=== PATIENT | male | born 1950 | race Two or more races ===

== ENCOUNTER 2025-09-06 21:15 | Emergency (ER) | payer OTHER ==
[~2025-09-06] VITALS: Ht 165.1 cm; Wt 80.9 kg
--- NOTE | 2025-09-06 21:42 | ED.PDOC ---
General HPI Comments HPI: 74-year-old male with past medical history of hypertension and diabetes presents to the emergency department with chief complaint of urinary retention. Patient states that he has been having scant urine production with associated suprapubic abdominal pain and lower back pain x5 days. Patient further reports to have been unable to have a bowel movement in x5 days. Patient denies fever, chills, sweats, hematuria, or penile discharge. No other symptoms or modifying factors are present at this time. PMHx: Diabetes, hypertension SHx: Denies any Allergies:NKA HPI: Poor Historian. REVIEW OF SYSTEMS: CONSTITUTIONAL: Denies acute: fever, diaphoresis, chills, generalized weakness. HEAD: Denies acute: headache, photophobia Eyes: Denies acute: Double vision, vision loss, eye pain, eye discharge. EARS: Denies acute: tinnitus, hearing loss, ear discharge, ear pain, THROAT: Denies acute: sore throat, swelling, difficulty swallowing , pain with swallowing, change in voice. NECK: Denies acute: neck pain, neck swelling, stiff neck. HEART: Denies acute : chest pain, palpitations, LUNGS: Denies acute: SOB, wheezing, cough, hemoptysis ABDOMEN: Denies acute: Nausea, Vomiting, diarrhea, melena , hematemesis, hematochezia SKIN: Denies acute: rash, redness, lesions, itchiness. EXTREMITIES: Denies acute: calf pain, numbness, tingling, weakness, denies pain in extremity. Neuro: Denies acute: focal neurological deficit, motor or sensory focal neurological deficit, tremors, seizure like activity, confusion, dizziness, change in mental status, loss of bowel or bladder function, cauda equina like symptoms. : Denies acute: dysuria, hematuria, flank pain, PSYCH: Denies acute: hallucination, suicidal ideation, homicidal ideation. PHYSICAL EXAM: General: ---moderate-----acute distress, awake and alert. Head: normocephalic, atraumatic. No raccoon's eyes, no munoz sign. Neck: supple, trachea is midline, no swelling. Throat: Normal phonation. Eyes:, no erythema, no purulent discharge, no proptosis, no icterus. Heart: regular rate, regular rhythm, no significant murmur appreciated. Lungs: no apparent respiratory distress, Able to speak in full sentences. No wheezing, no rhonchi, no crackles. No stridors Clear to auscultation bilaterally. Abdomen: mild suprapubic tender to palpation, non distended, soft, no guarding, no rebound, + bowel sounds. Neuro: Awake, Alert, oriented to name, self, situation, follows commands GCS=15. Speech is normal. Skin: no petechia, no purpura, no cyanosis, non-pale, not jaundice. Lower extremities: --no - Pitting edema no deformity, no focal swelling, no calf TTP. Makes eye contact. moves all four extremities. Face: no apparent facial droop. Ambulating in the ED independently. ED COURSE: DISCLAIMER: This medical document was created using an electronic medical record system with voice recognition software and computerized dictation system. Although this document has been carefully reviewed, there might still be some phonetic and typographical errors. Occasional wrong-word or "sound-alike" substitutions may have occurred due to the inherent limitations of voice recognition software. These areas are purely typographical due to imperfections of the software programs and do not reflect any compromise in the patient's medical care. Please read the chart carefully and recognize, using context, where these substitutions have occurred. Chief Complaint: Urinary Time Seen by MD: 21:40 Reviewed notes: Nurses Notes, Medications, Allergies Information Source: Patient Mode of Arrival: Ambulatory Prehospital treatment: None Symptoms: Inability to void History of: None Penile discharge: None Modifying factors: None associated signs and symptoms: Abdominal Pain, Back Pain, Inability to Void Was a procedure done? Was a procedure done?: No Differential Diagnosis Kidney stone (Female): N/A Kidney stone (Male): Pyelonephritis, Strain, Urinary obstruction, Urolithiasis, Urinary tract infection Urinary Problem (Female): N/A X-Ray, Labs, Meds, VS Vital Signs Date Time Temp Pulse Resp B/P (MAP) Pulse Ox O2 Delivery O2 Flow Rate FiO2 09/07/25 00:50 Room Air* 0 21 09/07/25 00:30 98.0 74 20 153/83 (106) 99 98.0 09/06/25 21:25 98.2 82 20 180/94 98 98.2 Lab Test 09/06/25 21:56 09/06/25 21:42 Range/Units Urine Color Light-yellow Yellow Urine Clarity Clear Clear Urine pH 5.5 5.0-9.0 Urine Specific [place] 1.009 1.001-1.035 Urine Protein 1+ H Negative Urine Ketones Negative Negative Urine Blood Trace H Negative /uL Urine Nitrite Negative Negative Urine Bilirubin Negative Negative Urine Urobilinogen Normal Negative mg/dL Urine Leukocyte Esterase Negative Negative /uL Urine RBC 1 0 - 3 /hpf Urine Microscopic WBC 1 0-3 /HPF Urine Squamous Epithelial Cells None seen <5 /hpf Urine Bacteria None seen None Seen /hpf Urine Hyaline Casts Few 0 - 2 /lpf Urine Glucose 1+ H Normal mg/dL White Blood Count 8.7 4.4-10.8 10^3/uL Red Blood Count 4.05 L 4.5-5.90 10^6/uL Hemoglobin 11.5 L 13.5-17.5 g/dL Hematocrit 33.7 L 41.0-53.0 % Mean Corpuscular Volume 83.2 80.0-100.0 fL Mean Corpuscular Hemoglobin 28.5 28.0-32.0 pg Mean Corpuscular Hemoglobin Concent 34.2 32.0-36.0 g/dL Red Cell Distribution Width 13.9 11.8-14.3 % Platelet Count 284 140-450 10^3/uL Mean Platelet Volume 7.8 6.9-10.8 fL Neutrophils (%) (Auto) 63.4 37.0-80.0 % Lymphocytes (%) (Auto) 20.1 10.0-50.0 % Monocytes (%) (Auto) 14.6 H 0.0-12.0 % Eosinophils (%) (Auto) 1.3 0.0-7.0 % Basophils (%) (Auto) 0.6 0.0-2.0 % Neutrophils # (Auto) 5.5 1.6-8.6 10 ^3/uL Lymphocytes # (Auto) 1.8 0.4-5.4 10 ^3/uL Monocytes # (Auto) 1.3 0-1.3 10 ^3/uL Eosinophils # (Auto) 0.1 0-0.8 10 ^3/uL Basophils # (Auto) 0.1 0-0.2 10 ^3/uL Nucleated Red Blood Cells 0.0 % Sodium Level 125 L 136-145 mmol/L Potassium Level 4.1 3.5-5.1 mmol/L Chloride Level 94 L 98-107 mmol/L Carbon Dioxide Level 22 20-31 mmol/L Anion Gap 9 5-15 Blood Urea Nitrogen 20 9-23 mg/dL Creatinine 1.09 0.700-1.30 mg/dL Glomerular Filtration Rate Calc 71 >90 mL/min BUN/Creatinine Ratio 18.3 10.0-20.0 Serum Glucose 236 H 74-106 mg/dL Lactic Acid Level 1.1 0.4-2.0 mmol/L Calcium Level 8.5 L 8.7-10.4 mg/dL Total Bilirubin 0.4 0.2-1.0 mg/dL Aspartate Amino Transferase (AST) 22 13-40 U/L Alanine Aminotransferase (ALT) 30 7-40 U/L Alkaline Phosphatase 97 46-116 U/L Total Protein 6.3 5.7-8.2 g/dL Albumin 3.8 3.2-4.8 g/dL Time of 1ST Reevaluation: 22:10 Reevaluation 1ST: Unchanged Time of 2ND Reevaluation: 00:58 (The case was discussed with the admitting team (HPI, physical exam, labs and diagnostic tests that were available at the time of disposition, ED course, treatment plan) on the phone. They agreed to evaluate the patient assume care of this patient from this point forward. [employer] Ed gar. 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 ) Insert Saavedra Catheter QSHIFT (09/06/25 21:57) Lidocaine 2% Topical Jelly (Lidocaine Hc (09/06/25 22:00) Ceftriaxone 1gm/50ml (Rocephin) (09/07/25 00:00) Sodium Chloride 0.9% (09/07/25 00:00) Vital Signs Date Time Temp Pulse Resp B/P (MAP) Pulse Ox O2 Delivery O2 Flow Rate FiO2 09/07/25 00:50 Room Air* 0 21 09/07/25 00:30 98.0 74 20 153/83 (106) 99 98.0 09/06/25 21:25 98.2 82 20 180/94 98 98.2 Laboratory Tests Test 09/06/25 21:42 Lactic Acid Level 1.1 mmol/L (0.4-2.0) White Blood Count 8.7 10^3/uL (4.4-10.8) Departure 1 Departure Time of Disposition: 23:52 Impression: Primary Impression: Acute urinary retention Additional Impression: Hyponatremia Disposition: ADMITTED INPATIENT Admit to: [facility] Condition: Guarded Discharged With: Self Critical Care Note Critical Care Time?: No I personally scribed for TIFFANY HERNANDEZ DO ([email or web address]) on 09/06/25 at 21:42. Electronically submitted by Ángela Jones [email or web address]). I personally scribed for TIFFANY HERNANDEZ DO ([email or web address]) on 09/06/25 at 21:53. Electronically submitted by Ángela Jones [email or web address]). TIFFANY HERNANDEZ DO Sep 06, 2025 21:42
[2025-09-06 22:08] LABS: Hematocrit 33.7 % (41.0-53.0); Hemoglobin 11.5 g/dL (13.5-17.5); Mean Corpuscular Hemoglobin 28.5 pg (28.0-32.0); Mean Corpuscular Volume 83.2 fL (80.0-100.0); Nucleated Red Blood Cells % 0.0 %
--- NOTE | 2025-09-06 22:08 | DVH ---
Exam: CT CT AB PEL WO CON-NO ORAL OR IV History: urinary symptoms Comparison Study: None TECHNIQUE: Multidetector CT of the abdomen and pelvis was performed from lung bases to pubic symphysis. Imaging was performed without IV contrast. Axial, coronal, and sagittal multiplanar reformats were obtained from the axial data set by the technologist. RADIATION DOSE: CTDI vol 16.2 mGy. DLP 1048.1 mGy.cm Findings: Limited evaluation of the solid organs in the absence of IV contrast. Lungs: Basilar atelectasis/scarring. Liver: Unremarkable. Spleen: Unremarkable. Pancreas: Unremarkable. Gallbladder: Unremarkable. Adrenals: Unremarkable Kidneys: Nonspecific bilateral perinephric stranding. No obstructing calculus. Pelvic Viscera: Prostatomegaly. Distended appearance of the urinary bladder. Mild wall thickening about the urinary bladder. Vasculature: Atherosclerotic aortoiliac calcification. Retroperitoneum: Unremarkable. Bowel: Colonic diverticulosis without CT evidence of diverticulitis. No bowel obstruction. The appendix is normal. Musculoskeletal: Unremarkable. Soft tissues: Unremarkable Impression: 1. Nonspecific bilateral perinephric stranding. Distended urinary bladder with mild wall thickening, clinical correlation for cystitis is suggested. Nonspecific bilateral perinephric stranding, infectious/inflammatory process cannot be excluded. An element of bladder outlet obstruction cannot be excluded. 2. Additional findings as detailed.
[2025-09-06 22:15] LABS: Urine Protein, UAD 1+ (Negative)
[2025-09-06 22:21] LABS: Alanine Aminotransferase 30 U/L (7-40); Albumin 3.8 g/dL (3.2-4.8); Alkaline Phosphatase 97 U/L (46-116); Anion Gap 9 (5-15); BUN/Creatinine Ratio 18.3 (10.0-20.0); Bilirubin, Total 0.4 mg/dL (0.2-1.0); Blood Urea Nitrogen 20 mg/dL (9-23); Carbon Dioxide 22 mmol/L (20-31); Potassium 4.1 mmol/L (3.5-5.1); Total Protein 6.3 g/dL (5.7-8.2)
[2025-09-06 22:22] LABS: Calcium 8.5 mg/dL (8.7-10.4); Chloride 94 mmol/L (98-107); Glucose 236 mg/dL (74-106); Sodium 125 mmol/L (136-145)
[2025-09-07 01:20] VITALS: PULSE 74; O2SAT 98
--- NOTE | 2025-09-07 01:20 | DVHINCON2 ---
LAQUITA AYALA PEDIATRIC DENTIST 09/07/25 0120: Date of service: Sep 07, [address] [place] Reason for Consultation Medical management History of Present Illness 74-year-old male with past medical history of DM, hypertension, hyperlipidemia presents with complaints of lower abdominal/pelvic pain x3 days. Patient endorses that he has been experiencing urinary retention. As he is only able to dribble when he urinates. He has also complained of constipation x5 days. Patient was recently seen by his PCP and prescribed tamsulosin, ciprofloxacin, and Colace on September 04, 2025. Patient's biggest concern right now is the inability to void and have a bowel movement. Patient denies fevers, chills, shortness of breath, chest pain, palpitations, nausea, vomiting, dysuria. Past Medical History Hypertension, HLD, dm Allergies: Coded Allergies: NO KNOWN ALLERGIES (Unverified , 09/07/25) Home Meds Active Scripts Psyllium (Metamucil) 1.7 Gm Waf, 1.7 GM PO BS for 10 Days, #10 MISC Prov:LAQUITA AYALA NP 09/07/25 Lactulose (Lactulose) 10 Gm/15 Ml Maryam, 10 GM PO BIDP PRN for 6 Days, #120 ML Prov:LAQUITA AYALA NP 09/07/25 Review of Systems 10 systems reviewed and negative except as per HPI Vital Signs Vital Signs Date Time Temp Pulse Resp B/P (MAP) Pulse Ox O2 Delivery O2 Flow Rate FiO2 09/07/25 00:50 Room Air* 0 21 09/07/25 00:30 98.0 74 20 153/83 (106) 99 98.0 Physical Exam GENERAL: Patient appearing stated age, in no acute distress. HEENT: Pupils equal and reactive to light and accommodation. Extraocular muscles intact. Mucous membranes moist. Conjunctivae pink. Anicteric sclerae. LUNGS: Bilateral air entry. No wheezes, rhonchi or rales. HEART: Regular rate and rhythm. Normal S1 and S2. ABDOMEN: BS normoactive, soft, nontender, and nondistended. No CVA tenderness. Lower abdominal discomfort on palpation EXTREMITIES: No clubbing, cyanosis, edema. No calf tenderness. Pedal pulses 2+. NEUROLOGICAL: The patient is alert and oriented times 3. CN II-XII intact. No focal deficits on gross sensory or motor examination. Labs/Diagnostic Data Labs Test 09/06/25 21:56 09/06/25 21:42 Range/Units Urine Color Light-yellow Yellow Urine Clarity Clear Clear Urine pH 5.5 5.0-9.0 Urine Specific [place]bin 1.009 1.001-1.035 Urine Protein 1+ H Negative Urine Ketones Negative Negative Urine Blood Trace H Negative /uL Urine Nitrite Negative Negative Urine Bilirubin Negative Negative Urine Urobilinogen Normal Negative mg/dL Urine Leukocyte Esterase Negative Negative /uL Urine RBC 1 0 - 3 /hpf Urine Microscopic WBC 1 0-3 /HPF Urine Squamous Epithelial Cells None seen <5 /hpf Urine Bacteria None seen None Seen /hpf Urine Hyaline Casts Few 0 - 2 /lpf Urine Glucose 1+ H Normal mg/dL White Blood Count 8.7 4.4-10.8 10^3/uL Red Blood Count 4.05 L 4.5-5.90 10^6/uL Hemoglobin 11.5 L 13.5-17.5 g/dL Hematocrit 33.7 L 41.0-53.0 % Mean Corpuscular Volume 83.2 80.0-100.0 fL Mean Corpuscular Hemoglobin 28.5 28.0-32.0 pg Mean Corpuscular Hemoglobin Concent 34.2 32.0-36.0 g/dL Red Cell Distribution Width 13.9 11.8-14.3 % Platelet Count 284 140-450 10^3/uL Mean Platelet Volume 7.8 6.9-10.8 fL Neutrophils (%) (Auto) 63.4 37.0-80.0 % Lymphocytes (%) (Auto) 20.1 10.0-50.0 % Monocytes (%) (Auto) 14.6 H 0.0-12.0 % Eosinophils (%) (Auto) 1.3 0.0-7.0 % Basophils (%) (Auto) 0.6 0.0-2.0 % Neutrophils # (Auto) 5.5 1.6-8.6 10 ^3/uL Lymphocytes # (Auto) 1.8 0.4-5.4 10 ^3/uL Monocytes # (Auto) 1.3 0-1.3 10 ^3/uL Eosinophils # (Auto) 0.1 0-0.8 10 ^3/uL Basophils # (Auto) 0.1 0-0.2 10 ^3/uL Nucleated Red Blood Cells 0.0 % Sodium Level 125 L 136-145 mmol/L Potassium Level 4.1 3.5-5.1 mmol/L Chloride Level 94 L 98-107 mmol/L Carbon Dioxide Level 22 20-31 mmol/L Anion Gap 9 5-15 Blood Urea Nitrogen 20 9-23 mg/dL Creatinine 1.09 0.700-1.30 mg/dL Glomerular Filtration Rate Calc 71 >90 mL/min BUN/Creatinine Ratio 18.3 10.0-20.0 Serum Glucose 236 H 74-106 mg/dL Lactic Acid Level 1.1 0.4-2.0 mmol/L Calcium Level 8.5 L 8.7-10.4 mg/dL Total Bilirubin 0.4 0.2-1.0 mg/dL Aspartate Amino Transferase (AST) 22 13-40 U/L Alanine Aminotransferase (ALT) 30 7-40 U/L Alkaline Phosphatase 97 46-116 U/L Total Protein 6.3 5.7-8.2 g/dL Albumin 3.8 3.2-4.8 g/dL Assessment - Urinary retention secondary to bladder outlet obstruction enlarged prostate - Hyponatremia Patient was seen and evaluated ER bed 9. Patient's chart was reviewed in its entirety including lab work, imaging, physical assessment. W8.7, H&H 11.5/33.7, PLT 284. Na 125, K4.1, BUN 20, creatinine 1.09, LA 1.1. UA negative. CT of the abdomen and pelvis was interpreted per the radiologist and reviewed for myself. Impression reads nonspecific bilateral perinephric stranding distended urinary bladder with mild wall thickening, clinical correlation for cystitis is suggested. Nonspecific bilateral perinephric stranding, infectious/inflammatory process can not be excluded. An element of bladder outlet obstruction can not be excluded. Prostatomegaly. On evaluation the patient is hemodynamically stable as such his main complaint is pelvic pain secondary to urinary retention ongoing constipation. Patient is also able to ambulate independently with steady gait. It is also noteworthy that the patient has recently been started on ciprofloxacin, Flomax, and Colace by his PCP on September 04, 2025. Given that the CBC is unremarkable. UA is negative, BUN and creatinine are both within normal range. Patient's current treatment is having a positive effect. An indw elling Saavedra catheter was ordered and placed for the urinary retention. Patient was also treated with 1 L NS and IV Rocephin per the emergency department. I also treated him with lactulose for constipation Plan/Recommendation At this time the patient is being discharged home in stable condition with an indwelling Saavedra catheter in place. The patient and his were both instructed that patient is to complete the antibiotics as ordered by his PCP. Patient was also educated on proper indwelling Saavedra catheter care to prevent additional UTIs. [facility] [place] case management has been consulted to establish home safety follow up, urology appointment on outpatient basis, and repeat BMP at [facility] in 4 days for reassessment of hyponatremia at which time the patient can be started on appropriate treatment if needed. We will also plan for repeat UA at this time The patient and his were both provided with strict ER precautions including but not limited to fevers, chills, dizziness, syncope, shortness of breath, chest pain, palpitations, abdominal pain, abdominal distention, continued constipation. If any of these occur return to the nearest emergency department for further evaluation and treatment. Plan discussed with: Patient, Spouse NARINDER MONTES MD 09/07/25 1345: Allergies: Coded Allergies: NO KNOWN ALLERGIES (Unverified , 09/07/25) Home Meds Active Scripts Psyllium (Metamucil) 1.7 Gm Waf, 1.7 GM PO BS for 10 Days, #10 MISC Prov:LAQUITA AYALA NP 09/07/25 Lactulose (Lactulose) 10 Gm/15 Ml Maryam, 10 GM PO BIDP PRN for 6 Days, #120 ML Prov:LAQUITA AYALA NP 09/07/25 Additional Comments Additional Comments Additional Comments Patient's chart is reviewed and discussed with the nurse practitioner. Patient is seen evaluated and discharged from ER by PEDIATRIC DENTIST. I agree with his evaluation, documentation, assessment and care plan as outlined. LAQUITA AYALA NP Sep 07, 2025 01:20 NARINDER MONTES MD Sep 07, 2025 13:45
[2025-09-07 01:26] VITALS: TEMP 98.1
[2025-09-07] MEDS: SODIUM CHLORIDE 0.9% 1,000 ML IV ONE (01:52)
[2025-09-07] MEDS: LIDOCAINE 2% TOPICAL JELLY 5 ML URJT TOP ONE (01:53)
[2025-09-07] MEDS: LACTULOSE 20Gm/30ML SOLN PO ONE (01:53)
[2025-09-07] MEDS ORDERED: LACT10SO3 PO (02:38)
[2025-09-07] MEDS ORDERED: PSYL1.7W2 PO (02:39)
[2025-09-07 03:00] VITALS: BP 148/87; PULSE 67; RESP 12; O2SAT 95
== END 2025-09-07 03:13 | disposition home or self-care (01) ==
LOC: ER 21:15
DX: R33.9 Retention of urine, unspecified (principal); E87.1 Hypo-osmolality and hyponatremia; I10 Essential (primary) hypertension; E11.9 Type 2 diabetes mellitus without complications; E78.5 Hyperlipidemia, unspecified
CPT/HCPCS: 36415; 51702; 74176; 80053; 81001; 83605; 85025; 96365; 99285; A4315; J0696; J7030

== ENCOUNTER 2025-09-24 15:32 | Emergency (ER) | payer OTHER ==
[~2025-09-24] VITALS: Ht 165.1 cm; Wt 76.2 kg
[~2025-09-24 15:32] MED LIST: LACT10SO3 PO; PSYL1.7W2 PO
--- NOTE | 2025-09-24 16:31 | ED.PDOC ---
GI ASSESSMENT HPI Comments 74-year-old male with a PMH of noninsulin dependent diabetes type 2, hypertension, hyperlipidemia presents with the complaints of constipation. Patient reports that it has been 3 days since he has been taking milk of magnesia, but it has not helped relief his constipation, and he feels bloated as he produces very little stool despite the medication. He complains that when he strains, the pain in his right leg, starting from his back increases. Patient was seen at this facility 2 weeks ago for acute urinary retention and CT Abdomen and pelvis showed 'urinary bladder thickening, bladder outlet obstruction can not be ruled out'. He was sent home with a Saavedra's catheter in place and antibiotics from this facility and reports that he went to [place] last week for similar complaints and Saavedra's was changed there. Patient also reports that he noticed blood in the urinary bag yesterday and on inquiry, states that he is having dysuria. He denies any nausea, vomiting, fever, chills, abdominal pain, chest pain or shortness of breath.On initial assessment, patient is in moderate distress, suprapubic tenderness is present on palpation and he has hypertensive urgency- 192/90 mmHg. Patient states he took his daily medication today morning. Chief Complaint: Constipation Time Seen by MD: 16:45 Allergies: Coded Allergies: NO KNOWN ALLERGIES (Unverified , 09/07/25) Home Meds Active Scripts Psyllium (Metamucil) 1.7 Gm Waf, 1.7 GM PO BS for 10 Days, #10 MISC Prov:LAQUITA AYALA SOAPSTONER 09/07/25 Lactulose (Lactulose) 10 Gm/15 Ml Maryam, 10 GM PO BIDP PRN for 6 Days, #120 ML Prov:LAQUITA AYALA SOAPSTONER 09/07/25 Information Source: Patient, Spouse Mode of Arrival: Ambulatory Brought in by: Timing: Days Duration: Since onset Prehospital treatment: None Quality: Other (Bloated feeling) Vomitus: None Stool: Other (Constipated, very little stool produced despite milk of magnesia) Severity: Moderate Recent: Laxative Use Recent Hx of: Other (Acute urinary retention) Pain Location: Suprapubic Modifying Factors: Nothing Associated sign and symptoms: Constipation Past Medical History PAST MEDICAL HISTORY: DM, High Lipids, HTN Past Medical History (Other): Acute urinary retention, acute cystitis Surgical History: Denies all surgeries Family History Family History: Reviewed,noncontributory to illness Social History Smoker: Non-Smoker Alcohol: Denies ETOH Use Drugs: Denies Drug Use Constitutional: denies: chills, diaphoresis, fatigue, fever, malaise, sweats, weakness, others EENTM: denies: blurred vision, double vision, ear bleeding, ear discharge, ear drainage, ear pain, ear ringing, eye pain, eye redness, hearing loss, mouth pain, mouth swelling, nasal discharge, nose bleeding, nose congestion, nose pain, photophobia, tearing, throat pain, throat swelling, voice changes, others Respiratory: denies: cough, hemoptysis, orthopnea, SOB at rest, shortness of breath, SOB with excertion, stridor, wheezing, others Cardiovascular: denies: chest pain, dizzy spells, diaphoresis, Dyspnea on exertion, edema, irregular heart beat, left arm pain, lightheadedness, palpitations, PND, syncope, others Gastrointestinal: reports: constipated, others (Bloated feeling); denies: abdomen distended, abdominal pain, blood streaked bowels, diarrhea, dysphagia, difficulty swallowing, hematemesis, melena, nausea, poor appetite, poor fluid intake, rectal bleeding, rectal pain, vomiting Genitourinary: reports: dysuria, hematuria; denies: burning, flank pain, frequency, incontinence, penile discharge, penile sore, pain, testicle pain, testicle swelling, urgency, others Neurological: reports: others (Right lower extremity numbness, chronic); denies: dizziness, fainting, headache, left sided numbness, left sided weakness, numbness, paresthesia, pre-existing deficit, right sided numbness, right sided weakness, seizure, speech problems, tingling, tremors, weakness Musculoskeletal: denies: back pain, gout, joint pain, joint swelling, muscle pain, muscle stiffness, neck pain, others Integumetry: denies: bruises, change in color, change in hair/nails, dryness, laceration, lesions, lumps, rash, wounds, others Allergic/Immunocompromised: denies: Difficulty Healing, Frequent Infections, Hives, Itching, others Hematologic/Lymphatic: denies: anemia, blood clots, easy bleeding, easy bruising, swollen glands, others Endocrine: denies: excessive hunger, excessive sweating, excessive thirst, excessive urination, flushing, intolerance to cold, intolerance to heat, unexplained weight gain, unexplained weight loss, others Psychiatric: denies: anxiety, bipolar disorder, depression, hopeless, panic disorder, schizophrenia, sleepless, suicidal, others Physical Exam General Appearance: Moderate Distress HEENT: Other (No pallor, no icterus, maintains eye contact) Neck: Full Range of Motion, Non-Tender, Normal, Normal Inspection Respiratory: No Accessory Muscle Use, No Respiratory Distress, Normal Breath Sounds Cardiovascular: No Edema, No JVD, No Murmur, Regular Rate/Rhythm Breast Exam: Deferred Gastrointestinal: Normal Bowel Sounds, Suprapubic, Tenderness, Other (No guarding, no rebound tenderness, no masses palpated) Genitalia: Deferred Pelvic: Deferred Rectal: Deferred Extremities: No calf tenderness, Normal range of motion, No pedal edema Neurologic: None Cerebellar Function: Normal Reflexes: Normal Skin: Normal Color Lymphatic: Other (No cervical adenopathy palpated) Was a procedure done? Was a procedure done?: No GI differential Dx Differential Diagnosis: Constipation, Urinary Obstruction, UTI X-Ray, Labs, Meds, VS Vital Signs Date Time Temp Pulse Resp B/P (MAP) Pulse Ox O2 Delivery O2 Flow Rate FiO2 09/24/25 15:35 98.0 90 18 192/90 98 98.0 Lab Test 09/24/25 18:47 09/24/25 16:50 Range/Units Urine Color Pending Urine Clarity Pending Urine pH Pending Urine Specific [place] Pending Urine Protein Pending Urine Ketones Pending Urine Blood Pending Urine Nitrite Pending Urine Bilirubin Pending Urine Urobilinogen Pending Urine Leukocyte Esterase Pending Urine RBC Pending Urine Microscopic WBC Pending Urine Squamous Epithelial Cells Pending Urine Bacteria Pending Urine Glucose Pending White Blood Count 7.3 4.4-10.8 10^3/uL Red Blood Count 4.06 L 4.5-5.90 10^6/uL Hemoglobin 11.7 L 13.5-17.5 g/dL Hematocrit 34.5 L 41.0-53.0 % Mean Corpuscular Volume 84.9 80.0-100.0 fL Mean Corpuscular Hemoglobin 28.8 28.0-32.0 pg Mean Corpuscular Hemoglobin Concent 33.9 32.0-36.0 g/dL Red Cell Distribution Width 13.6 11.8-14.3 % Platelet Count 345 140-450 10^3/uL Mean Platelet Volume 7.3 6.9-10.8 fL Neutrophils (%) (Auto) 65.1 37.0-80.0 % Lymphocytes (%) (Auto) 22.8 10.0-50.0 % Monocytes (%) (Auto) 8.7 0.0-12.0 % Eosinophils (%) (Auto) 2.5 0.0-7.0 % Basophils (%) (Auto) 0.9 0.0-2.0 % Neutrophils # (Auto) 4.8 1.6-8.6 10 ^3/uL Lymphocytes # (Auto) 1.7 0.4-5.4 10 ^3/uL Monocytes # (Auto) 0.6 0-1.3 10 ^3/uL Eosinophils # (Auto) 0.2 0-0.8 10 ^3/uL Basophils # (Auto) 0.1 0-0.2 10 ^3/uL Nucleated Red Blood Cells 0.0 % Sodium Level 134 L 136-145 mmol/L Potassium Level 4.3 3.5-5.1 mmol/L Chloride Level 98 98-107 mmol/L Carbon Dioxide Level 26 20-31 mmol/L Anion Gap 10 5-15 Blood Urea Nitrogen 22 9-23 mg/dL Creatinine 0.93 0.700-1.30 mg/dL Glomerular Filtration Rate Calc 86 >90 mL/min BUN/Creatinine Ratio 23.7 H 10.0-20.0 Serum Glucose 193 H 74-106 mg/dL Calcium Level 9.4 8.7-10.4 mg/dL Images Reviewed?: Images reviewed and evaluated by me Time of 1ST Reevaluation: 18:15 Reevaluation 1ST: Unchanged Time of 2ND Reevaluation: 19:25 Reevaluation 2ND: Improved Patient Education/Counseling: Diagnosis, Treatment Family Education/Counseling: Diagnosis, Treatment Comments Patient came with a chief complaint of constipation for the past 3 days and dysuria. A CT abdomen and pelvis without contrast showed lzpq-[id number] stool burden and okot-ya-crxxtwch prostatomegaly with bladder circumferentially thickened. Patient was given lactulose 30 mL for constipation. For hypertensive urgency patient was given clonidine 0.1 mg stat. CBC and BMP were unremarkable. UA shows UTI with leukocyte esterase +1. For patient's back pain radiating to the leg [place] 10/325 mg was given. Patient's blood glucose levels the slightly high and patient has been counseled regarding dietary modification, exercise and to follow up with primary care physician as well as urologist. Patient is stable and can be discharged. He has been prescribed Bactrim for 7 days to be taken twice a day. Patient and spouse have communicated understanding. SEPSIS Sepsis Screen Date sepsis recognized/suspect: Sep 24, 2025 Time Sepsis recognized/suspect: 1534 Recent Procedure: No On Antibiotic Therapy: No Respiratory Rate >20: No Heart Rate >90: No Temp<36 C (96.8 F) or >38.3 C: No SBP <90 or MAP <65 mmHG: No New Acute Mental Status Change: No Is the patient on CPAP, BIPAP,: No Physician Orders Urinalysis (09/24/25 16:19) Ct Ab Pel Wo Con-No Oral Or Iv (09/24/25 16:19) Vital Signs Date Time Temp Pulse Resp B/P (MAP) Pulse Ox O2 Delivery O2 Flow Rate FiO2 09/24/25 15:35 98.0 90 18 192/90 98 98.0 Laboratory Tests Test 09/24/25 16:50 White Blood Count 7.3 10^3/uL (4.4-10.8) Departure 1 Departure Time of Disposition: 19:30 Impression: Primary Impression: Constipation, slow transit Additional Impression: Urinary tract infection Disposition: HOME / SELF CARE / HOMELESS Condition: Stable Discharged With: Self Critical Care Note Critical Care Time?: No Stability Stability form required: No Heart Score Heart Score: Heart Score Response (Comments) Value History N/A 0 EKG N/A 0 Age N/A 0 Risk Factors N/A 0 Troponin N/A 0 Total 0 LOC WILKS RESIDENT Sep 24, 2025 16:31
--- NOTE | 2025-09-24 16:55 | DVH ---
EXAM: CT CT AB PEL WO CON-NO ORAL OR IV INDICATION: abdominal pain and consipation TECHNIQUE: Volumetric multidetector CT images of the abdomen and pelvis were obtained without contrast. All CT scans at this facility use dose modulation, iterative reconstruction, and/or weight based dosing when appropriate to reduce radiation dose to as low as reasonably achievable. COMPARISON: CT CT AB PEL WO CON-NO ORAL OR IV on DOS: 09/06/25 FINDINGS: [LOWER CHEST]: The partially visualized lung bases are clear without a pleural effusion. The cardiac size is normal without pericardial effusion. atelectasis in bilateral lung bases. Coronary artery calcifications. [LIVER]: Normal hepatic size without suspicious focal lesion. [GALLBLADDER AND BILIARY TREE]: No cholelithiasis. [SPLEEN]: Unremarkable. [PANCREAS]: Unremarkable. [ADRENAL GLANDS]: Unremarkable [KIDNEYS]: No hydronephrosis. No nephroureterolithiasis. [BLADDER]: Mild circumferential bladder wall thickening Saavedra catheter in place [REPRODUCTIVE ORGANS]: Xqas-bj-usjhtodv prostatomegaly [BOWEL/MESENTERY]: Stomach is normal. No CT evidence of bowel obstruction. normal appendix. Dhoa-xp-rxbgpalo stool burden. [ASCITES]: Absent [LYMPHADENOPATHY]: No pathologically enlarged lymph nodes by CT size criteria [VASCULATURE]: No aneurysmal dilatation. [ABDOMINAL WALL]: Unremarkable. [MUSCULOSKELETAL]: No acute fracture or aggressive focal osseous lesion. Multifocal degenerative change of the visualized spine. IMPRESSION: 1. No CT evidence of an acute abdominal/pelvic process. 2. Mptu-pi-zpdfviwc stool burden. Correlate for constipation. 3. Ekei-ch-dunwhune prostatomegaly. Circumferential bladder wall thickening. Correlate with urinalysis
[2025-09-24 17:11] LABS: Hematocrit 34.5 % (41.0-53.0); Hemoglobin 11.7 g/dL (13.5-17.5); Mean Corpuscular Hemoglobin 28.8 pg (28.0-32.0); Mean Corpuscular Volume 84.9 fL (80.0-100.0); Nucleated Red Blood Cells % 0.0 %
[2025-09-24 17:24] LABS: Potassium 4.3 mmol/L (3.5-5.1)
[2025-09-24 17:25] LABS: Anion Gap 10 (5-15); Calcium 9.4 mg/dL (8.7-10.4); Carbon Dioxide 26 mmol/L (20-31)
[2025-09-24 17:29] LABS: Sodium 134 mmol/L (136-145)
[2025-09-24 17:30] LABS: BUN/Creatinine Ratio 23.7 (10.0-20.0); Blood Urea Nitrogen 22 mg/dL (9-23); Chloride 98 mmol/L (98-107)
[2025-09-24 17:49] LABS: Glucose 193 mg/dL (74-106)
[2025-09-24 19:08] LABS: Urine Protein, UAD 2+ (Negative)
[2025-09-24] MEDS: HYDROcodone-ACET 10/325MG TAB PO ONE (19:30)
[2025-09-24] MEDS: LACTULOSE 20Gm/30ML SOLN PO ONE (19:30)
[2025-09-24 20:24] VITALS: BP 170/89; PULSE 72; RESP 14; TEMP 98.3; O2SAT 98
[2025-09-24] MEDS ORDERED: NITR-52 PO (20:43)
[2025-09-24] MEDS ORDERED: LACT10PA2 PO (20:43)
== END 2025-09-24 20:42 | disposition home or self-care (01) ==
LOC: ER 15:32
DX: K59.01 Slow transit constipation (principal); N39.0 Urinary tract infection, site not specified; E78.5 Hyperlipidemia, unspecified; E11.9 Type 2 diabetes mellitus without complications; I10 Essential (primary) hypertension; Z79.84 Long term (current) use of oral hypoglycemic drugs
CPT/HCPCS: 36415; 74176; 80048; 81001; 85025

== ENCOUNTER 2025-10-22 14:23 | Emergency (ER) | payer OTHER ==
[~2025-10-22] VITALS: Ht 167.6 cm; Wt 75.6 kg
[~2025-10-22 14:23] MED LIST changes: +LACT10PA2 PO; +NITR-52 PO
--- NOTE | 2025-10-22 15:03 | ED.PDOC ---
GI ASSESSMENT HPI Comments This is a 74 year old male presenting to the ED with chief complaint of constipation. Patient reports that he has been experiencing constipation for the past month with associated rectal pain. Patient relays that he was recently seen in [facility] where a CT showed severe constipation along with being prescribed steroid cream for hemorrhoids he was found to have. Patient states that he saw his PCP 2 weeks ago and was sent a referral for colonoscopy, scheduled for 11/21/25. Patient notes he is continuing to have pain when making a bowel movement and feels very constipated at this time with stool softener at home providing no relief. Patient reports that he has also had some unrelated right sided testicular pain. Patient denies any abdominal pain, N/V/D, dysuria, fever, or chills. Chief Complaint: Constipation Time Seen by MD: 14:57 Reviewed Notes: Nurses Notes, Medications, Allergies Allergies: Coded Allergies: NO KNOWN ALLERGIES (Unverified , 09/07/25) Home Meds Active Scripts Nitrofurantoin (Nitrofurantoin) 100 Mg Cap, 1 CAP PO BID for 5 Days, #20 CAP Prov:BAILEY BUTT RESIDENT 09/24/25 Lactulose (Lactulose) 10 Gm Jeff, 10 GM PO DAILY for 14 Days, #1 PACK Prov:BAILEY BUTT RESIDENT 09/24/25 Psyllium (Metamucil) 1.7 Gm Waf, 1.7 GM PO BS for 10 Days, #10 MISC Prov:LAQUITA AYALA GOLD RECLAIMER 09/07/25 Lactulose (Lactulose) 10 Gm/15 Ml Maryam, 10 GM PO BIDP PRN for 6 Days, #120 ML Prov:LAQUITA AYALA GOLD RECLAIMER 09/07/25 Information Source: Patient Mode of Arrival: Ambulatory Timing: Months Duration: Since onset Prehospital treatment: None Quality: Sharp Vomitus: None Stool: Impaction Severity: Moderate Recent: None Recent Hx of: None Past Medical History PAST MEDICAL HISTORY: DM, High Lipids, HTN Surgical History: Denies all surgeries Family History Family History: Reviewed,noncontributory to illness Social History Smoker: Non-Smoker Alcohol: Denies ETOH Use Drugs: Denies Drug Use Lives In: Home Constitutional: denies: chills, diaphoresis, fatigue, fever, malaise, sweats, weakness, others EENTM: denies: blurred vision, double vision, ear bleeding, ear discharge, ear drainage, ear pain, ear ringing, eye pain, eye redness, hearing loss, mouth pain, mouth swelling, nasal discharge, nose bleeding, nose congestion, nose p ain, photophobia, tearing, throat pain, throat swelling, voice changes, others Respiratory: denies: cough, hemoptysis, orthopnea, SOB at rest, shortness of breath, SOB with excertion, stridor, wheezing, others Cardiovascular: denies: chest pain, dizzy spells, diaphoresis, Dyspnea on exertion, edema, irregular heart beat, left arm pain, lightheadedness, palpitations, PND, syncope, others Gastrointestinal: reports: constipated, rectal pain; denies: abdomen distended, abdominal pain, blood streaked bowels, diarrhea, dysphagia, difficulty swallowing, hematemesis, melena, nausea, poor appetite, poor fluid intake, rectal bleeding, vomiting, others Genitourinary: reports: testicle pain; denies: burning, dysuria, flank pain, frequency, hematuria, incontinence, penile discharge, penile sore, pain, testicle swelling, urgency, others Neurological: denies: dizziness, fainting, headache, left sided numbness, left sided weakness, numbness, paresthesia, pre-existing deficit, right sided numbness, right sided weakness, seizure, speech problems, tingling, tremors, weakness, others Musculoskeletal: denies: back pain, gout, joint pain, joint swelling, muscle pain, muscle stiffness, neck pain, others Integumetry: denies: bruises, change in color, change in hair/nails, dryness, laceration, lesions, lumps, rash, wounds, others Allergic/Immunocompromised: denies: Difficulty Healing, Frequent Infections, Hives, Itching, others Hematologic/Lymphatic: denies: anemia, blood clots, easy bleeding, easy bruising, swollen glands, others Endocrine: denies: excessive hunger, excessive sweating, excessive thirst, excessive urination, flushing, intolerance to cold, intolerance to heat, unexplained weight gain, unexplained weight loss, others Psychiatric: denies: anxiety, bipolar disorder, depression, hopeless, panic disorder, schizophrenia, sleepless, suicidal, others All Other Systems: Reviewed and Negative Physical Exam General Appearance: No Apparent Distress, Normal HEENT: Normal ENT Inspection, Pharynx Normal, TMs Normal Neck: Full Range of Motion, Non-Tender, Normal, Normal Inspection Respiratory: Chest Non-Tender, Lungs Clear, No Accessory Muscle Use, No Respiratory Distress, Normal Breath Sounds Cardiovascular: No Edema, No JVD, No Murmur, No Gallop, Normal Peripheral Pulses, Regular Rate/Rhythm Breast Exam: Deferred Gastrointestinal: No Organomegaly, Non Tender, No Pulsatile Mass, Normal Bowel Sounds, Soft Genitalia: Normal, Other (Tenderness to right testicle.) Pelvic: Deferred Rectal: Hemorrhoids (Non thrombosed external hemorrhoids with no anal fissure and no palpable fluctuance.) Extremities: No calf tenderness, Normal capillary refill, Normal inspection, Normal range of motion, Non-tender, No pedal edema Musculoskeletal : Apperance: Normal Neurologic: Alert, waistline joiner II-XII nml as Tested, No Motor Deficits, Normal Affect, Normal Mood, No Sensory Deficits Cerebellar Function: Normal Reflexes: Normal Skin: Dry, Normal Color, Warm Lymphatic: No Adenopathy Was a procedure done? Was a procedure done?: No GI differential Dx Differential Diagnosis: Constipation X-Ray, Labs, Meds, VS Vital Signs Date Time Temp Pulse Resp B/P (MAP) Pulse Ox O2 Delivery O2 Flow Rate FiO2 10/22/25 16:58 98.8 71 16 151/86 (107) 98 98.8 10/22/25 14:28 98.2 78 18 165/86 98 98.2 Lab Test 10/22/25 15:40 10/22/25 15:11 Range/Units Urine Color Yellow Yellow Urine Clarity Clear Clear Urine pH 7.0 5.0-9.0 Urine Specific [place] 1.013 1.001-1.035 Urine Protein 2+ H Negative Urine Ketones Negative Negative Urine Blood Negative Negative /uL Urine Nitrite Negative Negative Urine Bilirubin Negative Negative Urine Urobilinogen Normal Negative mg/dL Urine Leukocyte Esterase Negative Negative /uL Urine RBC 1 0 - 3 /hpf Urine Microscopic WBC 2 0-3 /HPF Urine Squamous Epithelial Cells None seen <5 /hpf Urine Bacteria None seen None Seen /hpf Urine Glucose Normal Normal mg/dL White Blood Count 9.2 4.4-10.8 10^3/uL Red Blood Count 3.97 L 4.5-5.90 10^6/uL Hemoglobin 11.4 L 13.5-17.5 g/dL Hematocrit 33.5 L 41.0-53.0 % Mean Corpuscular Volume 84.4 80.0-100.0 fL Mean Corpuscular Hemoglobin 28.7 28.0-32.0 pg Mean Corpuscular Hemoglobin Concent 34.0 32.0-36.0 g/dL Red Cell Distribution Width 13.9 11.8-14.3 % Platelet Count 405 140-450 10^3/uL Mean Platelet Volume 7.0 6.9-10.8 fL Neutrophils (%) (Auto) 66.6 37.0-80.0 % Lymphocytes (%) (Auto) 19.4 10.0-50.0 % Monocytes (%) (Auto) 9.1 0.0-12.0 % Eosinophils (%) (Auto) 3.8 0.0-7.0 % Basophils (%) (Auto) 1.1 0.0-2.0 % Neutrophils # (Auto) 6.2 1.6-8.6 10 ^3/uL Lymphocytes # (Auto) 1.8 0.4-5.4 10 ^3/uL Monocytes # (Auto) 0.8 0-1.3 10 ^3/uL Eosinophils # (Auto) 0.4 0-0.8 10 ^3/uL Basophils # (Auto) 0.1 0-0.2 10 ^3/uL Nucleated Red Blood Cells 0.0 % Sodium Level 135 L 136-145 mmol/L Potassium Level 3.9 3.5-5.1 mmol/L Chloride Level 101 98-107 mmol/L Carbon Dioxide Level 25 20-31 mmol/L Anion Gap 9 5-15 Blood Urea Nitrogen 19 9-23 mg/dL Creatinine 0.94 0.700-1.30 mg/dL Glomerular Filtration Rate Calc 85 >90 mL/min BUN/Creatinine Ratio 20.2 H 10.0-20.0 Serum Glucose 136 H 74-106 mg/dL Calcium Level 9.1 8.7-10.4 mg/dL Total Bilirubin 0.2 0.2-1.0 mg/dL Aspartate Amino Transferase (AST) 18 13-40 U/L Alanine Aminotransferase (ALT) 21 7-40 U/L Alkaline Phosphatase 79 46-116 U/L Total Protein 6.4 5.7-8.2 g/dL Albumin 3.8 3.2-4.8 g/dL Lipase 38 12-53 U/L Time of 1ST Reevaluation: 15:57 Reevaluation 1ST: Unchanged Patient Education/Counseling: Diagnosis, Treatment Family Education/Counseling: Diagnosis, Treatment SEPSIS Sepsis Screen Date sepsis recognized/suspect: Oct 22, 2025 Time Sepsis recognized/suspect: 1427 Recent Procedure: No On Antibiotic Therapy: No Respiratory Rate >20: No Heart Rate >90: No Temp<36 C (96.8 F) or >38.3 C: No SBP <90 or MAP <65 mmHG: No New Acute Mental Status Change: No Is the patient on CPAP, BIPAP,: No Physician Orders Testicular Ultrasound (10/22/25 15:43) Vital Signs Date Time Temp Pulse Resp B/P (MAP) Pulse Ox O2 Delivery O2 Flow Rate FiO2 10/22/25 16:58 98.8 71 16 151/86 (107) 98 98.8 10/22/25 14:28 98.2 78 18 165/86 98 98.2 Laboratory Tests Test 10/22/25 15:11 White Blood Count 9.2 10^3/uL (4.4-10.8) Departure 1 Departure Time of Disposition: 18:34 (74-year-old male presenting for recurrent rectal discomfort in the setting of known constipation. Patient has external hemorrhoids that are not thrombosed. Pt is already using a topical steroid. Patient is advised that he should consider taking NSAIDs as needed for discomfort and try performing Sitz bath to help with his discomfort. Is also reporting some testicular discomfort, however, has normal testicular exam. Right Testicular ultrasound was performed which shows trace hydroceles, however, should not be causing the patient's discomfort. He has no dysuria, no abnormal penile discharge, no findings to suggest urethritis. Urinalysis does not seem consistent with UTI or other infection. Patient has no overlying skin changes along the scrotum, no findings to suggest cellulitis, Roxana's gangrene. Patient already had CT imaging for similar symptoms 1 month ago, does not require repeat CT as he has known constipation. Labs repeated today are stable in comparison to labs performed within the past month. CBC with no evidence of critical leukocytosis or significant anemia. Metabolic panel with no evidence of any acute electrolyte abnormalities or acute kidney insufficiency. Given acute on chronic nature of patient's symptoms with outpatient follow up with GI doctor already scheduled the patient is deemed suitable for discharge for continued outpatient workup and management. Will be given a prescription for senna, Colace to take to assist him and happen a bowel movement.) Impression: Primary Impression: Rectal pain Additional Impressions: Constipation Testicular pain External hemorrhoid Disposition: HOME / SELF CARE / HOMELESS Condition: Stable Additional Instructions: A testicular ultrasound was performed which is within normal limits. Please follow up with your clinical social worker for further workup and management of your constipation and hemorrhoids. Consider performing Sitz bath to help with your discomfort related to your hemorrhoids. e-Prescriptions Acetaminophen (Acetaminophen Extra Stren) 500 Mg Tab 1000 MG PO TID PRN for 10 Days, #60 TAB Prov: JAYLON ANDERSON MD 10/22/25 Senna (Senokot) 8.6 Mg Tab 8.6 MG PO DAILY for 30 Days, #30 TAB Prov: JAYLON ANDERSON MD 10/22/25 Docusate Sodium (Colace) 100 Mg Cap 1 CAP PO TID for 30 Days, #30 CAP Prov: JAYLON ANDERSON MD 10/22/25 Discharged With: Self Critical Care Note Critical Care Time?: No Stability Stability form required: No Heart Score Heart Score: Heart Score Response (Comments) Value History N/A 0 EKG N/A 0 Age N/A 0 Risk Factors N/A 0 Troponin N/A 0 Total 0 I personally scribed for JAYLON ANDERSON MD ([email or web address]) on 10/22/25 at 15:03. Electronically submitted by Henry De Anda ([email or web address]). JAYLON ANDERSON MD Oct 22, 2025 15:03
[2025-10-22 15:42] LABS: Hematocrit 33.5 % (41.0-53.0); Hemoglobin 11.4 g/dL (13.5-17.5); Mean Corpuscular Hemoglobin 28.7 pg (28.0-32.0); Mean Corpuscular Volume 84.4 fL (80.0-100.0); Nucleated Red Blood Cells % 0.0 %
[2025-10-22 15:57] LABS: Urine Protein, UAD 2+ (Negative)
[2025-10-22 15:59] LABS: Alanine Aminotransferase 21 U/L (7-40); Alkaline Phosphatase 79 U/L (46-116); Anion Gap 9 (5-15); BUN/Creatinine Ratio 20.2 (10.0-20.0); Blood Urea Nitrogen 19 mg/dL (9-23); Calcium 9.1 mg/dL (8.7-10.4); Carbon Dioxide 25 mmol/L (20-31); Chloride 101 mmol/L (98-107); Lipase 38 U/L (12-53); Potassium 3.9 mmol/L (3.5-5.1); Total Protein 6.4 g/dL (5.7-8.2)
[2025-10-22 16:00] LABS: Albumin 3.8 g/dL (3.2-4.8); Bilirubin, Total 0.2 mg/dL (0.2-1.0); Glucose 136 mg/dL (74-106); Sodium 135 mmol/L (136-145)
--- NOTE | 2025-10-22 17:09 | DVH ---
ULTRASOUND OF SCROTUM AND CONTENTS. INDICATION: right testicular pain COMPARISON: None TECHNIQUE: Multiple real-time grayscale sonographic and color and duplex Doppler images of the scrotum and its contents were obtained. FINDINGS: The right testicle measures 3.0 x 1.9 x 3.3 cm. The left testicle measures 3.0 x 2.4 x 2.7 cm. Both testicles demonstrate homogeneous echotexture without evidence of focal lesions. Right and left epididymis appear normal. Subsequent color and duplex Doppler interrogation of the testes demonstrated symmetric normal vascular flow to both testicles. No focal areas of hyperemia were seen. Trace bilateral hydroceles. IMPRESSION: No evidence of torsion, epididymitis, and/or orchitis. Trace bilateral hydroceles likely of little clinical significance.
[2025-10-22] MEDS ORDERED: ACET-6 PO (18:39)
[2025-10-22] MEDS ORDERED: DOCU-94 PO (18:39)
[2025-10-22] MEDS ORDERED: SENN-58 PO (18:39)
[2025-10-22 18:53] VITALS: BP 159/75; PULSE 68; RESP 16; TEMP 98.8; O2SAT 98
== END 2025-10-22 18:55 | disposition home or self-care (01) ==
LOC: ER 14:23
DX: K59.00 Constipation, unspecified (principal); N50.811 Right testicular pain; K64.4 Residual hemorrhoidal skin tags; I10 Essential (primary) hypertension; E11.9 Type 2 diabetes mellitus without complications; E78.5 Hyperlipidemia, unspecified; Z79.899 Other long term (current) drug therapy
CPT/HCPCS: 36415; 76870; 80053; 81001; 83690; 85025